=== PATIENT | female | born 1970 | race Caucasian/White ===

== ENCOUNTER 2017-01-22 23:47 | Emergency (ER) | payer OTHER ==
[~2017-01-22 23:47] MED LIST: ALBUTEROL17 GM INH; AMLODIPINE BESYL5 MG PO; ATIVAN0.5 M1 PO; BACTRIM DS TABL1 TAB PO; HYDROXYZINE HCL50 MG PO; IBUPROFEN800 MG PO; MACROBID100 M1 PO; MOTRIN600 M1 PO; NAPROSYN500 MG PO; NORVASC PO; PEN-VEE K PO; PERIDEX480 ML; ZOLOFT PO; ZYRTEC10 M1 PO
== END 2017-01-23 00:29 | disposition home or self-care (01) ==
LOC: SED 23:47
DX: F41.1 Generalized anxiety disorder (principal); L50.9 Urticaria, unspecified; F17.200 Nicotine dependence, unspecified, uncomplicated
CPT/HCPCS: 99283